=== PATIENT | female | born 1990 | race Caucasian/White ===

== ENCOUNTER → 2016-11-18 | Outpatient (CLI) | payer OTHER ==
[~2016-11-18] VITALS: Ht 165.1 cm; Wt 99.8 kg
== END ==
LOC: OPSV 11:00
DX: M32.10 Systemic lupus erythematosus, organ or system involvement unspecified (principal)
CPT/HCPCS: 96365; J0490; J7030

== ENCOUNTER → 2017-01-02 | Outpatient (CLI) | payer OTHER ==
[~2017-01-02] VITALS: Ht 165.1 cm; Wt 99.8 kg
== END ==
LOC: OPSV 12:00
DX: M32.10 Systemic lupus erythematosus, organ or system involvement unspecified (principal)
CPT/HCPCS: 96365; J0490

== ENCOUNTER 2017-01-15 14:24 | Emergency (ER) | payer OTHER | END 2017-01-15 15:42 | disposition home or self-care (01) | LOC: ER1 14:24 | DX: J98.01 Acute bronchospasm (principal); J40 Bronchitis, not specified as acute or chronic; M32.9 Systemic lupus erythematosus, unspecified; F17.210 Nicotine dependence, cigarettes, uncomplicated; Z79.899 Other long term (current) drug therapy | CPT/HCPCS: 87081; 87880; 94664; 99283 ==

== ENCOUNTER → 2017-01-19 | Outpatient (CLI) | payer OTHER | LOC: KOH-I 12:14 | DX: R05 Cough (principal) | CPT/HCPCS: 71020 ==

== ENCOUNTER → 2017-02-28 | Outpatient (CLI) | payer OTHER ==
[~2017-02-28] VITALS: Ht 165.1 cm; Wt 99.8 kg
== END ==
LOC: OPSV 09:52
DX: M32.10 Systemic lupus erythematosus, organ or system involvement unspecified (principal)
CPT/HCPCS: 96365; J0490

== ENCOUNTER → 2022-02-08 | Outpatient (CLI) | payer OTHER ==
[~2022-02-08] MED LIST: OMNICEF 300 MG300 MG PO; ZITHROMAX250 MG PO
== END ==
LOC: KOH-I 16:28
DX: M79.641 Pain in right hand (principal); M25.552 Pain in left hip; S63.111A Subluxation of metacarpophalangeal joint of right thumb, initial encounter
CPT/HCPCS: 73130; 73502